=== PATIENT | male | born 1995 | race Caucasian/White ===

== ENCOUNTER 2024-10-09 11:39 | Emergency (ER) | payer OTHER, SELFPAY ==
[2024-10-09 11:42] VITALS: BP 161/99; PULSE 82; RESP 20; TEMP 36.6; O2SAT 96
--- NOTE | 2024-10-09 12:00 | DI.RAD_ITS ---
Exam(s) XR HAND RT COMPLETE EXAM: XR HAND RT COMPLETE CLINICAL HISTORY: pain post trauma to hand, tenderness proximal hand. TECHNIQUE: 2D digital imaging was performed. COMPARISON: No exams were available for comparison FINDINGS: 3 views There is soft tissue swelling over the dorsal aspect of the hand. There are fractures at the bases of the 4th and 5th metacarpals with minimal displacement. No radiopaque foreign bodies. No other fractures identified. No osseous lesions. IMPRESSION: There is a minimally displaced fracture at the base of the 4th metacarpal. There is subtle evidence of a possible adjacent fracture of the base of the 5th metacarpal. If clinically indicated can be further studied with CT. DATA REPOSITORY: RADIATION DOSE DELIVERED:
[2024-10-09 13:31] VITALS: BP 139/95; PULSE 80; RESP 18; O2SAT 99
--- NOTE | 2024-10-09 15:10 | W.ED.GENAD ---
Discharge Plan Disposition Patient Disposition: Home Discharge Details Clinical Impression: Closed fracture of 4th metacarpal Primary Care Provider: None,None ED Provider: Pam Loya Home Meds and New Rx's Prescriptions: No Action No Known Home Meds Discharge Instructions Instructions: [facility] ED, Hand Fracture ED Additional Instructions: Take Motrin and Tylenol as needed for pain keep splint dry and in place Follow-up with orthopedics and placing referral for follow-up Elevate your hand is much as possible the swelling will gradually go down You may apply ice over the surface Stand Alone Forms: Work Release Referrals: Nicolas Morgan MD [ [facility] STAFF PHYSICIAN, Orthopaedic Surgical] HPI General Date/Time Provider Initiated Documentation: 10/09/24 12:02. HPI Narrative: 29-year-old male with right hand injury. Hand slammed into a wall when his dog pulled forward. Swollen and tender since. No other injuries reported. Related Data Home Medications ?Medication ?Instructions ?Recorded ?Confirmed Unknown [No Known Home Meds] 10/09/24 10/09/24 Allergies Allergy/AdvReac Type Severity Reaction Status Date / Time No Known Allergies Allergy Unverified 10/09/24 11:40 General Stated Complaint: Orthopedic EVELIA: 4 Exam Narrative Exam Narrative: General Appearance: Alert, oriented, no acute distress. Vital signs: Within normal limits. HEENT: Within normal limits. Respiratory: Within normal limits. Cardiovascular: Gastrointestinal: Genitourinary: Lymphatic: Back, Musculoskeletal: Extremities: Swelling and ecchymosis on dorsal right hand. Tenderness over base of fourth metacarpal. Good capillary refill. Skin: Warm and dry, no rash. Neurological: Neurological baseline. Psychiatric: Other observations: Course Vital Signs Vital signs: Vital Signs Temperature 36.6 C 10/09/24 11:42 Pulse 82 10/09/24 11:42 Respiratory Rate 20 10/09/24 11:42 Blood Pressure 161/99 H 10/09/24 11:42 Pulse Oximetry 96 10/09/24 11:42 Temperature 36.6 C 10/09/24 11:42 Temperature Source Oral 10/09/24 11:42 Pulse 80 10/09/24 13:31 Respiratory Rate 18 10/09/24 13:31 Blood Pressure 139/95 H 10/09/24 13:31 Blood Pressure Position Sitting 10/09/24 11:42 Pulse Oximetry 99 10/09/24 13:31 Oxygen Delivery Method Room Air 10/09/24 11:42 Oxygen Flow Rate 0 10/09/24 11:42 Pain Level 5 10/09/24 12:14 Medical Decision Making X-ray: nondisplaced fracture at base of fourth metacarpal. Initial Assessment: 29-year-old male with right hand injury after dog pulled forward causing hand to slam into the wall. Swelling and tenderness since the incident. No additional injuries reported. ED Course: - Patient alert and oriented, in no acute distress. - Swelling and ecchymosis on dorsal aspect of right hand. - Tenderness over base of fourth metacarpal. - Good capillary refill. - X-ray of right hand shows nondisplaced fracture at base of fourth metacarpal, read by me. - Placed in ulnar gutter splint. - Referred to orthopedics. - Supplied work note. - Reviewed return precautions; patient expressed understanding. - Neurovascularly intact post-splint placement. Final Assessment: Patient with nondisplaced fracture at base of fourth metacarpal treated with ulnar gutter splint. Referred to orthopedics for follow-up. Patient educated on return precautions and supplied work note. Clinical Impression: - Nondisplaced fracture at base of fourth metacarpal. Disposition: - Discharge - Follow-Up: Orthopedics referral. MDM Components Evaluation: - Number of Differential Diagnoses or Management Options: Nondisplaced fracture at base of fourth metacarpal. - Amount and Complexity of Data Reviewed: X-ray of right hand. - Risk of Complication and Morbidity or Mortality: Low risk due to nondisplaced nature of fracture and appropriate splinting. [facility] All Active Problems (Updated 10/09/24 @ 13:21 by RONALD Bhatia) Closed fracture of 4th metacarpal (Acute) Social History Smoking/Tobacco Use Status: Current every day Tobacco Type: cigarettes Years smoked: 15 Smoking risk assessment performed?: Yes Alcohol Intake: current Alcohol Intake frequency: a few times a month Drug use: Occasionally Substance use type: marijuana Do you feel safe at home: Yes Do you feel safe in your relationship?: Yes PAWSS Have you Been Recently Intoxicated or Drunk Within the Last 30 days?: No Have you Ever Experienced Previous Episodes of Alcohol Withdrawal?: No Have you ever Experienced Withdrawal Seizures?: No Have you ever Experienced Delirium Tremens(DT)s?: No Have you ever undergone Alcohol Rehabilitation Treatment (i.e, inpt ot outpatient treatment programs)?: No Have you ever Experienced Blackouts?: No Have you ever Combined Alcohol with other Downers within the last 90 days?: No Have you ever Combined Alcohol with any other Substance of Abuse during the last 90 days?: No Positive Blood Alcohol level on Presentation? [PCS.BAL]: No Evidence of Increased Autonomic Activity (i.e. HR>120, tremor, sweating, agitation, nausea)?: No Result: 0
== END 2024-10-09 13:32 | disposition home or self-care (01) ==
PROVIDERS: Emergency Provider Physician Assistant
DX: S62.314A Displaced fracture of base of fourth metacarpal bone, right hand, initial encounter for closed fracture (principal); S62.316A Displaced fracture of base of fifth metacarpal bone, right hand, initial encounter for closed fracture; F17.210 Nicotine dependence, cigarettes, uncomplicated; W22.01XA Walked into wall, initial encounter; Y93.K9 Activity, other involving animal care; Y92.018 Other place in single-family (private) house as the place of occurrence of the external cause
CPT/HCPCS: 99283; 73130

== ENCOUNTER 2024-10-28 14:22 | Outpatient (CLI) | payer OTHER, SELFPAY ==
--- NOTE | 2024-10-28 14:30 | DI.RAD_ITS ---
Exam(s) XR HAND RT COMPLETE EXAM: XR HAND RT COMPLETE CLINICAL HISTORY: RIGHT 4TH METACARPAL FX. TECHNIQUE: 2D digital imaging was performed of the right hand. Three images were obtained. AP, lateral and oblique views were obtained. COMPARISON: CR XR HAND RT COMPLETE from 10/09/2024 FINDINGS: BONES: There is again seen a fracture through the base of the 4th metacarpal. There is slight volar angulation of the fracture. Callus formation has developed about the fracture consistent with some interval healing. No bony destructive lesion is seen. JOINTS: No dislocation present. SOFT TISSUE: Normal. IMPRESSION: Healing mildly angulated fracture of the base of the 4th metacarpal. DATA REPOSITORY: RADIATION DOSE DELIVERED:
== END 2024-10-28 14:23 | disposition home or self-care (01) ==
LOC: DIORS 14:22
PROVIDERS: Visit Provider Physician Assistant
DX: S62.308A Unspecified fracture of other metacarpal bone, initial encounter for closed fracture (principal)
CPT/HCPCS: 73130